=== PATIENT | male | born 1975 | race Caucasian/White ===

== ENCOUNTER 2019-02-07 18:04 | Emergency (ER) | payer SELFPAY ==
[~2019-02-07] VITALS: Ht 190.5 cm; Wt 117.9 kg
[2019-02-07 18:41] LABS: BILIRUBIN,URINE NEGATIVE (NEG); CLARITY,URINE CLEAR; COLOR,URINE YELLOW; NITRITE,URINE NEGATIVE (NEG); PROTEIN,URINE NEGATIVE (NEG-TRACE)
--- NOTE | 2019-02-07 18:45 | PHYS DOC ---
Past Medical History Past Medical History: No Pertinent History Past Surgical History: Other Additional Past Surgical Histo: X 2 INGUINAL HERNIA SURGERY Alcohol Use: Rarely Drug Use: None Adult General Chief Complaint Chief Complaint: BACK PAIN - NO INJURY HPI HPI 43-year-old male presents to ER for complaints of lower back pain which radiates into his right groin. Patient states pain is been intermittent for the past few weeks however in the past 3 days pain has been increasing. Patient states he has had intermittent nonproductive cough. Patient denies hematuria but states he did have slight dysuria when providing sample. Patient denies nausea vomiting or diarrhea. Reports bowel movements and regular denying any dark tarry stools. He denies incontinence of bowel/bladder or saddle anesthesia. Patient denies any recent falls or injury. He reports he has been taking [id number] NSAIDs with minimal relief in symptoms. He does have history of double hernia surgery in 2011. Patient reports he stepped on a nail on Wednesday and that is about the same time his pain increased. Patient is up-to-date on tetanus. Review of Systems Review of Systems Constitutional: Denies fever or chills [] Eyes: Denies change in visual acuity, redness, or eye pain [] HENT: Denies nasal congestion or sore throat [] Respiratory: Denies shortness of breath. Reports intermittent nonprod. cough w/smoking hx Cardiovascular: No additional information not addressed in HPI [] GI: Denies nausea, vomiting, bloody stools or diarrhea. Reports lower abd/rt groin pain- denies testicular/scrotal pain/swelling : Denies hematuria. Reports had slight dysuria while providing UA in ER Musculoskeletal: Denies joint pain. Reports bilat. lower back pain radiates into rt side groin Integument: Denies rash or skin lesions [] Neurologic: Denies headache, focal weakness or sensory changes [] Endocrine: Denies polyuria or polydipsia [] All other systems were reviewed and found to be within normal limits, except as documented in this note. Current Medications Current Medications Current Medications Medications (Trade) Dose Ordered Sig/Myah Start Time Stop Time Status Last Admin Dose Admin Fentanyl Citrate (Fentanyl 2ml Vial) 50 mcg 1X ONCE 02/07/19 20:30 02/07/19 20:30 DC Info (CONTRAST GIVEN -- Rx MONITORING) 1 each PRN DAILY PRN 02/07/19 20:00 02/09/19 19:59 Iohexol (Omnipaque 300 Mg/ml) 100 ml 1X ONCE 02/07/19 20:30 02/07/19 20:31 DC 02/07/19 20:28 100 ML Sodium Chloride 1,000 ml @ 1,000 mls/hr 1X ONCE 02/07/19 19:00 02/07/19 19:59 DC 02/07/19 19:16 1,000 MLS/HR Allergies Allergies Allergies Coded Allergies Type Severity Reaction Last Updated Verified morphine Allergy Severe VERBALLY ABUSIVE 02/07/19 Yes Physical Exam Physical Exam Constitutional: Well developed, well nourished, no acute distress, non-toxic appearance. [] HENT: Normocephalic, atraumatic, oropharynx moist, nose normal. [] Eyes: Pupils equal, conjunctiva normal, no discharge. [] Neck: Normal range of motion, no tenderness, supple, no stridor. [] Cardiovascular: Heart rate regular rhythm, no murmur [] Lungs & Thorax: Bilateral breath sounds clear to auscultation- resp. equal/nonlabored Abdomen: Bowel sounds normal, soft, no distention/rigidity, tender mid to lower rt abd/rt groin, no masses, no pulsatile masses. [] : RN at bedside during exam as [employer]. No testicular or scrotal swelling/tenderness/". Tattoo on tip of the penis. No penile discharge. Tender bilat. groin. 2+ femoral bilat. No palp. hernia Skin: Warm, dry, no erythema, no rash. [] Back: No tenderness, bilat. CVA tenderness. [] Extremities: No tenderness, no cyanosis, no clubbing, ROM intact, no edema. [] Neurologic: Alert and oriented X 3, normal motor function, normal sensory function, no focal deficits noted. [] Psychologic: Affect normal, judgement normal, mood normal. [] Current Patient Data Vital Signs Vital Signs Date Time Temp Pulse Resp B/P (MAP) Pulse Ox O2 Delivery O2 Flow Rate FiO2 02/07/19 19:30 81 130/75 (93) 97 Room Air 02/07/19 18:17 98.4 18 98.4 Lab Values Laboratory Tests Test 02/07/19 18:09 02/07/19 19:05 Urine Color Yellow Urine Clarity Clear Urine pH 7.0 Urine Specific [place] 1.020 Urine Protein Negative mg/dL (NEG-TRACE) Urine Glucose (UA) Negative mg/dL (NEG) Urine Ketones (Stick) Negative mg/dL (NEG) Urine Blood Negative (NEG) Urine Nitrite Negative (NEG) Urine Bilirubin Negative (NEG) Urine Urobilinogen Dipstick 1.0 mg/dL (0.2 mg/dL) Urine Leukocyte Esterase Negative (NEG) Urine RBC Occ /HPF (0-2) Urine WBC Occ /HPF (0-4) Urine Squamous Epithelial Cells Occ /LPF Urine Bacteria 0 /HPF (0-FEW) White Blood Count 7.5 x10^3/uL (4.0-11.0) Red Blood Count 4.83 x10^6/uL (4.30-5.70) Hemoglobin 14.8 g/dL (13.0-17.5) Hematocrit 43.1 % (39.0-53.0) Mean Corpuscular Volume 89 fL (79-100) Mean Corpuscular Hemoglobin 31 pg (25-35) Mean Corpuscular Hemoglobin Concent 34 g/dL (31-37) Red Cell Distribution Width 13.3 % (11.5-14.5) Platelet Count 181 x10^3/uL (140-400) Neutrophils (%) (Auto) 57 % (31-73) Lymphocytes (%) (Auto) 32 % (24-48) Monocytes (%) (Auto) 7 % (0-9) Eosinophils (%) (Auto) 2 % (0-3) Basophils (%) (Auto) 1 % (0-3) Neutrophils # (Auto) 4.3 x10^3/uL (1.8-7.7) Lymphocytes # (Auto) 2.4 x10^3/uL (1.0-4.8) Monocytes # (Auto) 0.5 x10^3/uL (0.0-1.1) Eosinophils # (Auto) 0.2 x10^3/uL (0.0-0.7) Basophils # (Auto) 0.1 x10^3/uL (0.0-0.2) Sodium Level 138 mmol/L (136-145) Potassium Level 4.0 mmol/L (3.5-5.1) Chloride Level 104 mmol/L (98-107) Carbon Dioxide Level 27 mmol/L (21-32) Anion Gap 7 (6-14) Blood Urea Nitrogen 15 mg/dL (8-26) Creatinine 1.2 mg/dL (0.7-1.3) Estimated GFR (Cockcroft-Gault) 66.4 BUN/Creatinine Ratio 13 (6-20) Glucose Level 100 mg/dL (70-99) H Calcium Level 8.1 mg/dL (8.5-10.1) L Magnesium Level 2.0 mg/dL (1.8-2.4) Total Bilirubin 0.2 mg/dL (0.2-1.0) Aspartate Amino Transferase (AST) 19 U/L (15-37) Alanine Aminotransferase (ALT) 26 U/L (16-63) Alkaline Phosphatase 69 U/L (46-116) Total Protein 6.8 g/dL (6.4-8.2) Albumin 3.4 g/dL (3.4-5.0) Albumin/Globulin Ratio 1.0 (1.0-1.7) Laboratory Tests 02/07/19 19:05 Laboratory Tests 02/07/19 19:05 EKG EKG [] Radiology/Procedures Radiology/Procedures PROCEDURE: CT ABD PELV W/ IV CONTRST ONLY INDICATION: Abdomen pain COMPARISON: None. TECHNIQUE: Axial CT images obtained through the abdomen and pelvis with contrast. One or more of the following individualized dose reduction techniques were utilized for this examination: 1. Automated exposure control; 2. Adjustment of the mA and/or kV according to patient size; 3. Use of iterative reconstruction technique. FINDINGS: Partial visualization of suspected hydrocele. Fullness of the soft tissues at proximal aspect of the inguinal canal with some fluid density seen. Measures up to 22 mm on the right and 23 mm on the left. No intrahepatic bile duct dilation. The gallbladder is largely contracted. No peripancreatic fluid collection. Spleen unremarkable. No left-sided hydronephrosis. Urinary bladder is partially distended. No right-sided hydronephrosis. Colonic diverticulosis. No periappendiceal inflammation. No dilated loops of bowel to suggest obstruction. Degenerative changes of the spine. This includes disc protrusions and osteophyte formation at the vertebral body endplates as well as facet hypertrophy with multilevel central canal and neural foraminal stenosis. IMPRESSION: 1. No hydronephrosis. 2. Partial visualization of suspected bilateral hydrocele. 3. At the inguinal canal proximally bilaterally there is a fluid density structure seen. If the patient had surgery to this region then this could be from causes such as seroma or lymphocele. Another possible cause would include small fluid collection and duplication cyst. 4. Degenerative changes the spine. Electronically signed by: Flora Roberts MD (02/07/2019 8:30 PM) [facility] DICTATED and SIGNED BY: FLORA ROBERTS MD DATE: 02/07/19 2030 Course & Med Decision Making Course & Med Decision Making Pertinent Labs and Imaging studies reviewed. (See chart for details) [] Dragon Disclaimer Dragon Disclaimer This electronic medical record was generated, in whole or in part, using a voice recognition dictation system. Departure Departure Impression: Primary Impression: Bilateral groin pain Additional Impression: Back pain Disposition: 01 HOME, SELF-CARE Condition: STABLE Referrals: NO PCP (PCP) KEREN HERRERA MD Patient Instructions: Back Pain, Adult, Groin Strain Additional Instructions: Warm compress to affected area every 3-4 hours for 20-30 minutes at a time. Tylenol and/or ibuprofen as needed for pain as directed on container. Drink plenty of fluids daily. Avoid smoking. Follow-up with a primary care physician and or general surgeon for reevaluation and further care. You are calcium level was low on your lab results. You should start taking daily multivitamins with calcium and have this level rechecked. Scripts Hydrocodone/Apap 5-325 (NORCO 5-325 TABLET) 1 Each Tablet 1 TAB PO PRN Q6HRS PRN for PAIN for 12 Days, TAB 0 Refills No driving or drinking alcohol while taking this medication Prov: LES RAMSEY APRN 02/07/19 Problem Qualifiers LES RAMSEY APRN Feb 07, 2019 18:45
[2019-02-07 18:47] LABS: BACTERIA,URINE 0 /HPF (0-FEW); RBC,URINE OCC /HPF (0-2); SQUAMOUS EPITHELIAL CELL,UR OCC /LPF; WBC,URINE OCC /HPF (0-4)
[2019-02-07] MEDS ORDERED: fentaNYL PF VIAL 100 MCG/2 ML VIAL IV ONE ×3 (19:00→20:30)
[2019-02-07] MEDS ORDERED: IV NORMAL SALINE 1000ML BAG 1,000 ML IV ONE (19:00)
[2019-02-07 19:14] LABS: BASO # 0.1 x10^3/uL (0.0-0.2); BASO % 1 % (0-3); EOS # 0.2 x10^3/uL (0.0-0.7); EOS % 2 % (0-3); HEMATOCRIT 43.1 % (39.0-53.0); HEMOGLOBIN 14.8 g/dL (13.0-17.5); LYMPH # 2.4 x10^3/uL (1.0-4.8); LYMPH % 32 % (24-48); MEAN CORPUSCULAR HEMOGLOBIN 31 pg (25-35); MEAN CORPUSCULAR HGB CONC 34 g/dL (31-37); MEAN CORPUSCULAR VOLUME 89 fL (79-100); MONO # 0.5 x10^3/uL (0.0-1.1); MONO % 7 % (0-9); NEUT # 4.3 x10^3/uL (1.8-7.7); NEUT % 57 % (31-73); PLATELET COUNT 181 x10^3/uL (140-400); RED BLOOD COUNT 4.83 x10^6/uL (4.30-5.70); RED CELL DISTRIBUTION WIDTH 13.3 % (11.5-14.5); WHITE BLOOD COUNT 7.5 x10^3/uL (4.0-11.0)
[2019-02-07 19:22] LABS: CALCIUM 8.1 mg/dL (8.5-10.1); CREATININE 1.2 mg/dL (0.7-1.3); GFR 66.4
[2019-02-07 19:29] LABS: ALBUMIN 3.4 g/dL (3.4-5.0); TOTAL BILIRUBIN 0.2 mg/dL (0.2-1.0); TOTAL PROTEIN 6.8 g/dL (6.4-8.2)
[2019-02-07] MEDS ORDERED: CONTRAST GIVEN. MC PRN (20:00)
[2019-02-07] MEDS ORDERED: IOHEXOL 300 MG/ML 100ML VIAL. IV ONE (20:30)
--- NOTE | 2019-02-07 20:34 | RAD ---
INDICATION: Abdomen pain COMPARISON: None. TECHNIQUE: Axial CT images obtained through the abdomen and pelvis with contrast. One or more of the following individualized dose reduction techniques were utilized for this examination: 1. Automated exposure control; 2. Adjustment of the mA and/or kV according to patient size; 3. Use of iterative reconstruction technique. FINDINGS: Partial visualization of suspected hydrocele. Fullness of the soft tissues at proximal aspect of the inguinal canal with some fluid density seen. Measures up to 22 mm on the right and 23 mm on the left. No intrahepatic bile duct dilation. The gallbladder is largely contracted. No peripancreatic fluid collection. Spleen unremarkable. No left-sided hydronephrosis. Urinary bladder is partially distended. No right-sided hydronephrosis. Colonic diverticulosis. No periappendiceal inflammation. No dilated loops of bowel to suggest obstruction. Degenerative changes of the spine. This includes disc protrusions and osteophyte formation at the vertebral body endplates as well as facet hypertrophy with multilevel central canal and neural foraminal stenosis. IMPRESSION: 1. No hydronephrosis. 2. Partial visualization of suspected bilateral hydrocele. 3. At the inguinal canal proximally bilaterally there is a fluid density structure seen. If the patient had surgery to this region then this could be from causes such as seroma or lymphocele. Another possible cause would include small fluid collection and duplication cyst. 4. Degenerative changes the spine. Electronically signed by: William Roberts MD (02/07/2019 8:30 PM) [facility]
[2019-02-07 20:37] VITALS: BP 126/61
[2019-02-07] MEDS ORDERED: HYDR-3164 PO (21:06)
== END 2019-02-07 21:17 | disposition home or self-care (01) ==
LOC: ER 18:04
DX: R10.32 Left lower quadrant pain (principal); R10.31 Right lower quadrant pain; M54.5 Low back pain; R30.0 Dysuria; Z88.5 Allergy status to narcotic agent
CPT/HCPCS: 36415; 74177; 80053; 81001; 83735; 85025; 96374; 96376; 99285; J3010; J7030; Q9967; 96361

== ENCOUNTER 2019-02-28 00:29 | Emergency (ER) | payer SELFPAY ==
[~2019-02-28 00:29] MED LIST: HYDR-3164 PO
== END 2019-02-28 00:40 | disposition left against medical advice (07) ==
LOC: ER 00:29
DX: S41.112A Laceration without foreign body of left upper arm, initial encounter (principal); Z53.21 Procedure and treatment not carried out due to patient leaving prior to being seen by health care provider; X58.XXXA Exposure to other specified factors, initial encounter; Y93.89 Activity, other specified; Y92.89 Other specified places as the place of occurrence of the external cause; Y99.8 Other external cause status